=== PATIENT | female | born 1980 | race Caucasian/White ===

== ENCOUNTER 2020-12-04 17:15 | Outpatient (CLI) | payer OTHER | END 2020-12-04 22:15 | disposition home or self-care (01) | LOC: GENOP 17:15 | DX: O36.8330 Maternal care for abnormalities of the fetal heart rate or rhythm, third trimester, not applicable or unspecified (principal); O99.513 Diseases of the respiratory system complicating pregnancy, third trimester; J45.909 Unspecified asthma, uncomplicated; Z88.8 Allergy status to other drugs, medicaments and biological substances; Z3A.38 38 weeks gestation of pregnancy | CPT/HCPCS: 96360 ==

== ENCOUNTER → 2020-12-11 | Outpatient (CLI) | payer OTHER ==
[2020-12-11 16:26] LABS: HEMOGLOBIN 12.3 gm/dl (12.3-15.3); RED BLOOD COUNT 3.93 M/UL (4.00-5.10); WHITE BLOOD COUNT 7.4 K/UL (4.5-11.0)
== END ==
LOC: OPSV2 15:04
PROVIDERS: Obstetrics & Gynecology
DX: Z01.812 Encounter for preprocedural laboratory examination (principal); O34.219 Maternal care for unspecified type scar from previous cesarean delivery; N85.8 Other specified noninflammatory disorders of uterus
CPT/HCPCS: 36415; 81001; 85025

== ENCOUNTER 2020-12-13 05:39 | Inpatient (IN) | payer OTHER ==
[~2020-12-13] VITALS: Ht 157.5 cm; Wt 69.4 kg
[2020-12-13 07:32] LABS: HEMOGLOBIN 11.1 gm/dl (12.3-15.3); RED BLOOD COUNT 3.7 M/UL (4.00-5.10); WHITE BLOOD COUNT 7.6 K/UL (4.5-11.0)
[2020-12-13] MEDS ORDERED: IBUPROFEN600 MG PO (11:10)
[2020-12-13] MEDS ORDERED: HYDROCODON-ACE1 EAC4 PO (11:10)
[2020-12-13] MEDS ORDERED: DOCUSATE SODIU100 MG PO (11:10)
[2020-12-14 06:39] LABS: HEMOGLOBIN 11.1 gm/dl (12.3-15.3)
== END 2020-12-14 19:37 | disposition home or self-care (01) | DRG 788 ==
LOC: OB 05:39
PROVIDERS: ADMIT Obstetrics & Gynecology
PROC: 4A1HXCZ Monitoring of Products of Conception, Cardiac Rate, External Approach (ICD-10-PCS; 2020-12-13)
PROC: 10D00Z1 Extraction of Products of Conception, Low, Open Approach (ICD-10-PCS; principal; 2020-12-13 07:30)
DX: O34.211 Maternal care for low transverse scar from previous cesarean delivery (principal); Z3A.39 39 weeks gestation of pregnancy; Z37.0 Single live birth; O99.52 Diseases of the respiratory system complicating childbirth; J45.909 Unspecified asthma, uncomplicated; Z20.822 Contact with and (suspected) exposure to COVID-19; Z83.3 Family history of diabetes mellitus; Z82.49 Family history of ischemic heart disease and other diseases of the circulatory system; Z80.3 Family history of malignant neoplasm of breast; Z80.2 Family history of malignant neoplasm of other respiratory and intrathoracic organs; Z90.49 Acquired absence of other specified parts of digestive tract
CPT/HCPCS: 36415; 81001; 82800; 85014; 85018; 85025; J0690; J2274; J2370; J2405; J2590; J7120; U0003